=== PATIENT | male | born 1985 | race Two or more races ===

== ENCOUNTER 2020-11-09 08:39 | Emergency (ER) | payer OTHER ==
[~2020-11-09] VITALS: Ht 180.3 cm; Wt 132.0 kg
[2020-11-09] MEDS ORDERED: BUPIVACAINE MPF 0.5% 30 ML VIAL. INJ ONE (09:15)
--- NOTE | 2020-11-09 09:21 | RAD ---
Three-view right fifth finger 11/09/2020 CLINICAL HISTORY: Patient smashed his right fifth finger with weights. A PA digital radiograph of the right hand was obtained. Oblique and lateral digital radiographs of th e right fifth finger were obtained. An acute oblique fracture of the terminal tuft of the distal phal anx of the right fifth finger is seen. There is associated soft tissue swelling. The distal fracture fragment is minimally displaced superiorly and anteriorly. No additional fracture is seen. No radiopa que foreign body is noted. IMPRESSION: Acute fracture of the terminal tuft of the distal phalanx of the right fifth finger. Electronically signed by: Leonard Weaver MD (11/09/2020 9:19 AM) [id number]
[2020-11-09] MEDS ORDERED: ceFAZolin IM 1 GM VIAL IM ONE (09:30)
--- NOTE | 2020-11-09 09:41 | PHYS DOC ---
Past Medical History Past Medical History: No Pertinent History Past Surgical History: No Surgical History Smoking Status: Never Smoker Alcohol Use: None General Adult EDM: Chief Complaint: FINGER INJURY HPI: HPI: Patient is a 35 year old right-handed male who caught his right pinky finger yoke machine at the gym just prior to arrival. Patient complains of moderate to severe right pinky finger pain where he sustained a laceration. Pain is worse with palpation and range of motion. Patient arrives via EMS. Patient's last tetanus shot was in 2018. Pain is throbbing in nature. Review of Systems: Review of Systems: Constitutional: Denies fever or chills. [] Eyes: Denies change in visual acuity. [] HENT: Denies nasal congestion or sore throat. [] Respiratory: Denies cough or shortness of breath. [] Cardiovascular: Denies chest pain or edema. [] GI: Denies abdominal pain, nausea, vomiting, bloody stools or diarrhea. [] : Denies dysuria. [] Musculoskeletal: Denies back pain but complains of right pinky pain Integument: Denies rash. [] Neurologic: Denies headache, focal weakness or sensory changes. [] Endocrine: Denies polyuria or polydipsia. [] Lymphatic: Denies swollen glands. [] Psychiatric: Denies depression or anxiety. [] Heart Score: Risk Factors: Risk Factors: DM, Current or recent (<one month) smoker, HTN, HLP, family history of CAD, obesity. Risk Scores: Score 0 - 3: 2.5% MACE over next 6 weeks - Discharge Home Score 4 - 6: 20.3% MACE over next 6 weeks - Admit for Clinical Observation Score 7 - 10: 72.7% MACE over next 6 weeks - Early Invasive Strategies Current Medications: Current Medications Medications (Trade) Dose Ordered Sig/Dayana Start Time Stop Time Status Last Admin Dose Admin Bupivacaine HCl (Sensorcaine Mpf 0.5%) 30 ml 1X ONCE 11/09/20 09:15 11/09/20 09:20 DC Cefazolin Sodium (Ancef Im) 1 gm 1X ONCE 11/09/20 09:30 11/09/20 09:31 DC Allergies: Allergies: Allergies Coded Allergies Type Severity Reaction Last Updated Verified No Known Drug Allergies 11/09/20 No Physical Exam: PE: Constitutional: Well developed, well nourished, no acute distress, non-toxic appearance. [] HENT: Normocephalic, atraumatic, bilateral external ears normal, no trismus, nose normal. [] Eyes: PERRLA, EOMI, conjunctiva normal, no discharge. [] Neck: Normal range of motion, no tenderness, supple, no stridor. [] Cardiovascular:Heart rate regular rhythm, peripheral pulses intact cap refill is brisk Lungs & Thorax: Bilateral breath sounds clear, no respiratory distress Abdomen: soft, no tenderness, no masses, no pulsatile masses. [] Skin: Warm, dry, no erythema, no rash. [] Laceration to the right finger through the nailbed Back: No tenderness, no CVA tenderness. [] Extremities: 2.0 Laceration through the distal nailbed with subungual hematoma on the right pinky finger, tenderness to palpate, neurovascular intact distally no cyanosis, no clubbing, ROM intact, no edema. [] Neurologic: Alert and oriented X 3, normal motor function, normal sensory function, no focal deficits noted. [] Psychologic: Affect normal, judgement normal, mood normal. [] Current Patient Data: Vital Signs: Vital Signs Date Time Temp Pulse Resp B/P (MAP) Pulse Ox O2 Delivery O2 Flow Rate FiO2 11/09/20 08:47 97.8 57 18 114/55 (74) 97 Room Air 97.8 EKG: EKG: [] Radiology/Procedures: Radiology/Procedures: [][facility] [address] [place] [address] IMAGING REPORT Signed PATIENT: HO FUENTES ACCOUNT: [id number] : 1985 LOCATION: ER AGE: 35 SEX: M EXAM STATUS: PRE ER ORD. PHYSICIAN: ZACK GALARZA MD REASON: right pinky injury, smashed rt 5th digit with weights PROCEDURE: FINGER(S) RIGHT Three-view right fifth finger 11/09/2020 CLINICAL HISTORY: Patient smashed his right fifth finger with weights. A PA digital radiograph of the right hand was obtained. Oblique and lateral digital radiographs of the right fifth finger were obtained. An acute oblique fracture of the terminal tuft of the distal phalanx of the right fifth finger is seen. There is associated soft tissue swelling. The distal fracture fragment is minimally displaced superiorly and anteriorly. No additional fracture is seen. No radiopaque foreign body is noted. IMPRESSION: Acute fracture of the terminal tuft of the distal phalanx of the right fifth finger. Electronically signed by: Leonard Weaver MD (11/09/2020 9:19 AM) [id number] DICTATED and SIGNED BY: LEONARD WEAVER MD DATE: 11/09/20 [id number] 0 Indication: [Right fifth finger laceration] Procedure: The patient was placed in the appropriate position and anesthesia obtained using a digital block. 0.5% bupivacaine was injected using a dorsal approach with a 22-gauge needle, 4 cc of anesthetic was injected. Patient tolerated well. Patient achieved excellent anesthesia. The skin was prepped with alcohol prep prior to injection. A tourniquet was then applied to the finger, it was up for approximately 15 to 20 minutes.. The area was then sia nsed and copiously irrigated with normal saline.. The patient's nail was then elevated and three 5.0 Vicryl sutures were placed in the nailbed to repair the nailbed laceration. simple interrupted sutures were placed. 1 five-point 0 Ethilon suture was then placed in the skin laceration just outside the nailbed. A simple interrupted suture was used then 2 5.0 simple interrupted Ethilon sutures were used to secure the nail back in place. Patient tolerated well. Dressing was applied and a limited splint was ordered. Total repaired wound length: 2 cm Other Items: Aluminum splint, intermediate repair The patient tolerated the procedure well Complications: None Course & Med Decision Making: Course & Med Decision Making Pertinent Labs and Imaging studies reviewed. (See chart for details) [] Shortly after arrival patient had 2 episodes of vagal response which he recovered quickly from 35-year-old male presents with a open fracture and nailbed laceration on his right pinky finger. The laceration was repaired with 3 sutures of the nailbed and one on the skin. Little splint was applied to the finger. Patient was given IM Ancef and a prescription for Keflex for home. Patient given referral to orthopedic surgeon for follow-up. Return precautions given. Coco Disclaimer: Coco Disclaimer: This electronic medical record was generated, in whole or in part, using a voice recognition dictation system. Departure Departure Impression: Primary Impression: Open fracture of phalanx of right little finger Additional Impression: Nailbed laceration, finger Disposition: 01 DC HOME SELF CARE/HOMELESS Condition: STABLE Referrals: SHAHLA ALFARO MD 2-3 days Patient Instructions: Finger Fracture, Nail Bed Injury Additional Instructions: EMERGENCY DEPARTMENT GENERAL DISCHARGE INSTRUCTIONS THANK YOU for coming to [facility] Emergency Department (ED) today and trusting us with your care. We trust that you had a positive experience in our Emergency Department. If you wish to speak to the department Management you can contact the supervisor throwing department at . YOUR FOLLOW UP INSTRUCTIONS ARE FOLLOWS: Do you have a private doctor? If you do not have a private doctor, please ask for a resource list of physicians or clinics that may be able to assist you with follow up care. The Emergency Physician has interpreted your x-rays. The X-ray specialist will also review them. If there is a change in the findings you will be notified in 48 hours when at all possible. A lab test or lab culture may have been done, your results will be reviewed and you will be notified if you need a change in treatment. ADDITIONAL INSTRUCTIONS AND INFORMATION Your care today has been supervised by a physician who is specially trained in emergency care. Many problems require more than one evaluation for a complete diagnosis and treatment. We recommend that you schedule your follow up appointment as recommended to ensure complete treatment of your illness or injury. If you are unable to obtain follow up care and continue to have a problem, or if your condition worsens we recommend that you return to the ED. We are not able to safely determine your condition over the phone nor are we able to give sound medical advice over the phone. For these safety reasons, if you call for medical advice we will ask you to come to the ED for further evaluation If you have any questions regarding these discharge instructions please call the ED at . SAFETY INFORMATION In the interest of safety, wellness, and injury prevention; we encourage you to wear your seatbelt, if you smoke; quit smoking, and we encourage your family to use protective helmet for bicycling and other sporting events that present an increased risk for head injury. IF YOUR SYMPTOMS WORSEN OR NEW SYMPTOMS DEVELOP, OR YOU HAVE CONCERNS ABOUT YOUR CONDITION; OR IF YOUR CONDITION WORSENS WHILE YOU ARE WAITING FOR YOUR FOLLOW UP APPOINTMENT; EITHER CONTACT YOUR PRIMARY CARE DOCTOR, THE PHYSICIAN WHOSE NAME AND NUMBER YOU WERE GIVEN, OR RETURN TO THE ED IMMEDIATELY. Scripts Hydrocodone/Apap 5-325 (NORCO 5-325 TABLET) 1 Each Tablet 1-2 EACH PO PRN Q6HRS PRN for PAIN, #15 as needed for pain Prov: ZACK GALARZA MD 11/09/20 Cephalexin (KEFLEX) 500 Mg Capsule 1 CAP PO TID for 10 Days, #30 CAP 0 Refills Prov: ZACK GALARZA MD 11/09/20 ZACK GALARZA MD Nov 09, 2020 09:41
[2020-11-09 10:30] VITALS: BP 134/79
[2020-11-09] MEDS ORDERED: CEPH-264 PO (10:36)
[2020-11-09] MEDS ORDERED: HYDR-3164 PO (10:36)
== END 2020-11-09 10:51 | disposition home or self-care (01) ==
LOC: ER 08:39
DX: S62.636A Displaced fracture of distal phalanx of right little finger, initial encounter for closed fracture (principal); W23.0XXA Caught, crushed, jammed, or pinched between moving objects, initial encounter; Y93.89 Activity, other specified; Y92.89 Other specified places as the place of occurrence of the external cause; Y99.8 Other external cause status
CPT/HCPCS: 11760; 73140; 96372; 99285; J0690; J3490; 29130; 99283